=== PATIENT | female | born 2000 | race Caucasian/White ===

== ENCOUNTER 2025-04-04 19:18 | Emergency (ER) | payer SELFPAY ==
[2025-04-04] MEDS ORDERED: ONDANSETRON 4 MG/2 ML VIAL ONE (19:51)
[2025-04-04] MEDS ORDERED: NA CHLORIDE 0.9% 1,000 ML ONE (19:52)
[2025-04-04 20:11] LABS: Absolute Lymphocytes (CBC) 2.7 K/uL (0.7-4.9); Hematocrit 40.5 % (36.0-45.0); Hemoglobin 13.5 g/dL (12.0-15.0); MCH 30.3 pg (27.0-35.0); MCHC 33.2 g/dL (32.0-36.0); MCV 91.2 fL (80-100); MPV 9.2 fL (7.6-11.3); Nucleated RBC Absolute Count 0.0 (0-0); Nucleated Red Blood Cells % 0.0 % (0-0); RBC Red Blood Cell Count 4.44 M/uL (3.86-4.86); White Blood Count 8.60 thou/uL (4.3-10.9)
[2025-04-04 20:25] LABS: ALT/SGPT 24.0 U/L (13-56); Albumin 3.6 g/dL (3.4-5.0); Albumin/Globulin Ratio 1.1 (1.1-1.8); Alkaline Phosphatase 55.0 U/L (45-117); Anion Gap 8.1 mEq/L (5.0-15.0); BUN Blood Urea Nitrogen 17.0 mg/dL (7-18); Globulin 3.2 g/dL (2.3-3.5); Glucose Level 89.0 mg/dL (74-106); Lipase 17.0 U/L (13-75)
[2025-04-04 20:26] LABS: AST/SGOT 21.0 U/L (15-37); Potassium 4.1 mEq/L (3.5-5.1)
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
[2025-04-04 22:38] LABS: Urine Culture Reflex Order NOT NEEDED; Urine Microscopic Reflex YN ORDER UMIC; Urine WBC Clump Rare /HPF (None Seen)
[2025-04-04 23:17] VITALS: BP 124/75; TEMP 98; O2SAT 100
== END 2025-04-04 22:39 | disposition home or self-care (01) ==
LOC: ER 19:18
DX: E86.0 Dehydration (principal)
CPT/HCPCS: 36415; 80053; 81001; 81025; 82550; 83690; 85025; 96361; 96374; 99284; J2405; J7030